=== PATIENT | female | born 1970 | race Caucasian/White ===

== ENCOUNTER 2019-06-27 08:02 | Emergency (ER) | payer OTHER ==
[2019-06-27] MEDS ORDERED: Fluorescein Sodium TOPICAL* 1 MG TEST STRIP OPHTHALMIC ONE (08:03)
[2019-06-27] MEDS ORDERED: Tetracaine 0.5% OPTH.SOL 4 ML* 1 DROP BTL BOTH EYES ONE (08:03)
--- NOTE | 2019-06-27 08:10 | UC ---
Eye Complaint HPI - HPI Summary HPI Summary: 48 yo female presents with RIGHT eye injury. She tells me that last night she was laying on the couch and went to put her glasses on and poked herself in the right eye with the ear stem of the glasses. Had mild immediate pain. Since that time has felt a FB sensation and eye has been watering. She denies vision changes or photophobia. Does not wear contacts. - History of Current Complaint Stated Complaint: EYE INJURY Time Seen by Provider: 06/27/19 08:10 Hx Obtained From: Patient Onset/Duration: Sudden Onset Severity Initially: Mild Severity Currently: Mild Pain Intensity: 3 Pain Scale Used: 0-10 Numeric - Allergies/Home Medications Allergies/Adverse Reactions: Allergies Allergy/AdvReac Type Severity Reaction Status Date / Time DRINKING ALCOHOL Allergy HIVES, RED Uncoded 06/27/19 08:20 Home Medications: Home Medications Acetaminophen [Masophen] 1,000 mg PO ONCE PRN 06/27/19 [History Confirmed ] Escitalopram Oxalate [Lexapro 10 mg] 1 tab PO DAILY 06/27/19 [History Confirmed 06/27/19] PMH/Surg Hx/FS Hx/Imm Hx Psychological History: Anxiety, Depression - Surgical History Surgical History: Yes Surgery Procedure, Year, and Place: . Lithotripsy - Family History Known Family History: Positive: Hypertension - both mother and father - Social History Lives: With Family Alcohol Use: None Substance Use Type: None Smoking Status (MU): Never Smoked Tobacco Review of Systems All Other Systems Reviewed And Are Negative: No Constitutional: Positive: Negative Skin: Positive: Negative Eyes: Positive: Drainage, Eye Redness ENT: Positive: Negative Respiratory: Positive: Negative Cardiovascular: Positive: Negative Neurological: Positive: Negative Psychological: Positive: Negative Physical Exam - Summary Physical Exam Summary: GENERAL: WDWN. No pain distress. SKIN: No rashes, sores, lesions, or open wounds. HEENT: Head: AT/NC Eyes: EOM intact. PERRLA. RIGHT EYE: Mild scleral injection. Mild clear discharge. Fluorescein dye exam with large ~7mm abrasion to central extending to 11o'clock position cornea. No raúl sign. Nose: NTTP maxillary and frontal sinus. NECK: Supple. Nontender. No lymphadenopathy. CHEST: No accessory muscle use. Breathing comfortably and in no distress. CV: Pulses intact. Cap refill <2seconds NEURO: Alert. PSYCH: Age appropriate behavior. Triage Information Reviewed: Yes Vital Signs: Vital Signs: Temp Pulse Resp BP Pulse Ox 98.9 F 91 18 140/90 100 06/27/19 08:14 06/27/19 08:14 06/27/19 08:14 06/27/19 08:14 06/27/19 08:14 Vital Signs Reviewed: Yes Eye Complaint Course/Dx - Course Course Of Treatment: Dye exam with large corneal abrasion. Will place her on ofloxacin and ketorlac drops. I called Dr. Knight's office and made her an appt for tomorrow morning for a recheck of her eye. - Differential Dx/Diagnosis Provider Diagnosis: Corneal abrasion Discharge ED - Sign-Out/Discharge Documenting (check all that apply): Patient Departure All imaging exams completed and their final reports reviewed: No Studies - Discharge Plan Condition: Stable Disposition: HOME Prescriptions: Ketorolac 0.5% OPHTH (NF) 1 drop RIGHT EYE QID #1 btl Ofloxacin 0.3% (Eye Drop) [Ocuflox OPTH 0.3% (Eye Drop)] 1 drop RIGHT EYE QID # 1 btl Patient Education Materials: Corneal Abrasion (ED) Referrals: Marcela Garcia DO [Primary Care Provider] - Kirk Knight MD [Medical Doctor] - 06/28/19 8:30 am Additional Instructions: If you develop a fever, shortness of breath, chest pain, new or worsening symptoms - please call your PCP or go to the ED immediately. Your blood pressure was high at todays visit. Please see your primary provider within 4 weeks for recheck and re-evaluation. Please see Dr. Gu at [facility] tomorrow 06/28 at 8:30am. - Billing Disposition and Condition Condition: STABLE Disposition: Home
[2019-06-27 08:24] VITALS: BP 140/90
== END 2019-06-27 08:41 | disposition home or self-care (01) ==
LOC: UCEAST 08:02
DX: S05.01XA Injury of conjunctiva and corneal abrasion without foreign body, right eye, initial encounter (principal); F41.9 Anxiety disorder, unspecified; F32.9 Major depressive disorder, single episode, unspecified; Z79.899 Other long term (current) drug therapy; Z91.09 Other allergy status, other than to drugs and biological substances; W22.8XXA Striking against or struck by other objects, initial encounter; Y92.9 Unspecified place or not applicable
CPT/HCPCS: 99212; A9270-GY; G0463